=== PATIENT | male | born 1960 ===

== ENCOUNTER 2024-10-02 09:19 | Outpatient (CLI) | payer OTHER | END 2024-10-02 09:38 | disposition home or self-care (01) | LOC: TOM 09:19 | PROVIDERS: ATTEND Internal Medicine | DX: S63.287A Dislocation of proximal interphalangeal joint of left little finger, initial encounter (principal); K40.90 Unilateral inguinal hernia, without obstruction or gangrene, not specified as recurrent | CPT/HCPCS: 73120; 74177; 76881; Q9965 ==

== ENCOUNTER 2025-03-26 14:33 | Outpatient (CLI) | payer OTHER | END 2025-03-26 14:47 | disposition home or self-care (01) | LOC: SONOGRAMA 14:33 | PROVIDERS: ATTEND General Practice | DX: K40.20 Bilateral inguinal hernia, without obstruction or gangrene, not specified as recurrent (principal) ==

== ENCOUNTER → 2025-04-21 10:43 | Outpatient (CLI) | payer OTHER ==
[2025-04-21 13:08] LABS: URINE APPEARANCE Clear; URINE BILIRRUBIN Negative (NEGATIVE); URINE BLOOD Negative; URINE COLOR Dark Yellow; URINE KETONE Trace (NEGATIVE); URINE LEUKOCYTE Negative; URINE NITRATE Negative; URINE PROTEIN Trace (NEGATIVE); URINE UROBILINOGEN 1.0 E.U./dl
[2025-04-21 13:12] LABS: BASO % 0.8 % (0.1-1.2); EOS # 0.10 (0.04-0.54); EOS % 1.9 % (0.7-7.0); LYMPH # 1.92 (1.18-3.74); LYMPH % 36.4 % (19.3-53.1); MEAN PLATELET VOLUME 9.10 fl (9.4-12.4); MONO # 0.66 (0.24-0.82); NEUT # 2.55 (1.56-6.13); NEUT % 48.2 % (34.0-71.1); RED CELL DISTRIBUTION WIDTH 12.3 % (11.6-14.4)
[2025-04-21 13:12] LABS: URINE BACTERIA 4.7 uL (0.0-1933); URINE RBC 32.4 uL (0.0-20.8)
[2025-04-21 13:13] LABS: URINE CAST 0.14 uL (0.0-1.40); URINE EPITHELIAL CELLS 1.2 uL (0.0-38.8); URINE GLUCOSE 250 MG/DL (NEGATIVE); URINE WBC 1.3 uL (0.0-23.2)
[2025-04-21 13:14] LABS: MONO % 12.5 % (4.7-12.5)
== END | disposition home or self-care (01) ==
LOC: LAB 10:43
PROVIDERS: ATTEND Internal Medicine Infectious Disease
DX: N39.0 Urinary tract infection, site not specified (principal); Z11.3 Encounter for screening for infections with a predominantly sexual mode of transmission; R52 Pain, unspecified; A64 Unspecified sexually transmitted disease; R30.0 Dysuria; Z11.59 Encounter for screening for other viral diseases